=== PATIENT | female | born 1935 | race Caucasian/White ===

== ENCOUNTER 2016-11-30 15:10 | Emergency (ER) | payer OTHER, BC ==
[~2016-11-30] VITALS: Ht 157.5 cm; Wt 60.1 kg
[~2016-11-30 15:10] MED LIST: ALPRAZOLAM0.25 M2 PO; ALPRAZOLAM0.25 MG PO; CITRUCEL500 MG PO; COLACE50 MG PO; FLONASE16 G1 BOTH NARES; Flexeril PO; LEVOTHYROXINE75 MCG PO; LIDODERM 5% P1 PATCH TD; Levothroid,Synthroid PO; NEXIUM40 MG PO; Nucynta PO; OSCAL, OYSTER500 MG PO; PERCOCET 5/31 TABLET PO; PROTONIX40 MG PO; Pen-Vee K,Veetids PO; SYSTANE BALANCE10 ML BOTH EYES; SYSTANE ULTRA 015 ML BOTH EYES; TYLENOL EXTRA500 MG PO; VITAMIN B12-FO1 EACH PO; VITAMIN D32000 UNI1 PO; ZOFRAN ODT4 MG PO; ZOFRAN4 MG PO
[2016-11-30 16:46] LABS: HEMATOCRIT 37.7 % (36.0-46.0); MCH 30.8 PG (29.0-34.0); MCHC 32.9 G/DL (30.0-36.0); MCV 93.5 FL (83-99); MEAN PLAT.VOLUME 9.2 uM^3 (9.5-12.4); PLATELET COUNT 219 K/uL (156-360); RBC DIS.WIDTH-CV 13.1 % (11.8-14.6); RED BLOOD COUNT 4.03 M/uL (3.80-5.20); WHITE BLOOD COUNT 5.5 K/uL (4.1-10.2)
[2016-11-30 16:49] LABS: ADD MIUA? YES; BILIRUBIN NEGATIVE; BLOOD SMALL; COLOR STRAW ((YELLOW)); GLUCOSE (STRIP) NEGATIVE; KETONES 5; LEUKOCYTES NEGATIVE; NITRITE NEGATIVE; PROTEIN (STRIP) NEGATIVE; SPECIFIC GRAVITY 1.009 (1.000-1.030); UROBILINOGEN 0.2 MG/DL (0.2-1.0)
[2016-11-30 16:53] LABS: CHLORIDE 106 mEq/L (99-109); POTASSIUM 3.9 mEq/L (3.7-5.4); SODIUM 140 mEq/L (136-147)
[2016-11-30 16:55] LABS: GLUCOSE 116 mg/dL (70-99)
[2016-11-30 16:56] LABS: ANION GAP 10 MEQ/L (2-14)
[2016-11-30 16:57] LABS: BACTERIA NONE SEEN /HPF; EPITHELIAL CELLS RARE /HPF; MUCUS TRACE /LPF; RED BLOOD CELLS 0-5 /HPF (0-5); UCUL ADDED? NO; WHITE BLOOD CELLS 0-5 /HPF (0-5)
[2016-11-30 16:57] LABS: TOTAL BILIRUBIN 0.4 mg/dL (0.0-1.0)
[2016-11-30 16:59] LABS: ALKALINE PHOSPHATASE 63 IU/L (3-129); GFR ESTIMATE (CALCULATED) > 59 mL/min/
[2016-11-30 17:00] LABS: UREA NITROGEN (BUN) 8 mg/dL (9-23)
[2016-11-30 17:02] LABS: LIPASE 19 U/L (1.0-51.0)
[2016-11-30] MEDS ORDERED: PROMETHAZINE12.5 M1 PO (17:41)
[2016-11-30] MEDS ORDERED: HYDROCODON-ACE1 EAC7 PO (17:41)
[2016-11-30 20:17] VITALS: BP 159/69
== END 2016-11-30 20:18 | disposition home or self-care (01) ==
LOC: EME 15:10
PROVIDERS: Emergency Medicine
DX: M54.9 Dorsalgia, unspecified (principal); K21.9 Gastro-esophageal reflux disease without esophagitis
CPT/HCPCS: 71275; 74175; 80053; 81003; 83690; 85027; 99281; 99284; J2270; J2405

== ENCOUNTER 2017-11-25 07:42 | Emergency (ER) | payer OTHER, BC ==
[~2017-11-25] VITALS: Ht 154.9 cm; Wt 59.1 kg
[~2017-11-25 07:42] MED LIST changes: +HYDROCODON-ACE1 EAC7 PO; +PROMETHAZINE12.5 M1 PO
[2017-11-25 08:48] LABS: APPEARANCE CLEAR ((CLEAR)); BILIRUBIN NEGATIVE; BLOOD NEGATIVE; COLOR COLORLESS ((YELLOW)); GLUCOSE (STRIP) NEGATIVE; KETONES 5; LEUKOCYTES NEGATIVE; NITRITE NEGATIVE; PROTEIN (STRIP) NEGATIVE; SPECIFIC GRAVITY 1.005 (1.000-1.030); UCUL ADDED? NO; UROBILINOGEN 0.2 MG/DL (0.2-1.0)
[2017-11-25 09:56] VITALS: BP 166/72
== END 2017-11-25 10:12 | disposition home or self-care (01) ==
LOC: EME 07:42
PROVIDERS: Physician Assistant Medical
DX: S39.012A Strain of muscle, fascia and tendon of lower back, initial encounter (principal); G89.29 Other chronic pain; F41.9 Anxiety disorder, unspecified; K21.9 Gastro-esophageal reflux disease without esophagitis; Z88.8 Allergy status to other drugs, medicaments and biological substances; Z88.2 Allergy status to sulfonamides; Z88.6 Allergy status to analgesic agent
CPT/HCPCS: 72110; 81003; 99281; 99285

== ENCOUNTER 2017-12-01 09:52 | Emergency (ER) | payer OTHER, BC ==
[~2017-12-01] VITALS: Ht 154.9 cm; Wt 59.9 kg
[2017-12-01 10:46] LABS: HEMATOCRIT 37.7 % (36.0-46.0); HEMOGLOBIN 12.5 G/DL (11.9-15.5); MCH 31.3 PG (29.0-34.0); MCHC 33.2 G/DL (30.0-36.0); MCV 94.3 FL (83-99); PLATELET COUNT 241 K/uL (156-360); RBC DIS.WIDTH-CV 13.1 % (11.8-14.6); RBC DIS.WIDTH-SD 45.8 % (39-53); WHITE BLOOD COUNT 4.5 K/uL (4.1-10.2)
[2017-12-01 10:55] LABS: ALBUMIN 4.1 g/dL (3.2-4.8); CHLORIDE 101 mEq/L (99-109); POTASSIUM 4.5 mEq/L (3.7-5.4); SODIUM 140 mEq/L (136-147)
[2017-12-01 10:57] LABS: GLUCOSE 101 mg/dL (70-99); TOTAL PROTEIN 6.8 g/dL (6.4-8.3)
[2017-12-01 10:59] LABS: TOTAL BILIRUBIN 0.3 mg/dL (0.0-1.0)
[2017-12-01 11:01] LABS: ALKALINE PHOSPHATASE 70 IU/L (3-129); CREATININE 0.8 mg/dL (0.6-1.3); GFR ESTIMATE (CALCULATED) > 59 mL/min/
[2017-12-01 11:02] LABS: AST (GOT) 18 IU/L (2-34); UREA NITROGEN (BUN) 7 mg/dL (9-23)
[2017-12-01 11:03] LABS: DIRECT BILIRUBIN 0.1 mg/dL (0.0-0.3)
[2017-12-01 11:04] LABS: ALT (GPT) 8 IU/L (3-49)
[2017-12-01 11:29] VITALS: BP 182/87
== END 2017-12-01 11:30 | disposition home or self-care (01) ==
LOC: EME 09:52
PROVIDERS: Emergency Medicine
DX: R60.0 Localized edema (principal); R19.00 Intra-abdominal and pelvic swelling, mass and lump, unspecified site; Z79.891 Long term (current) use of opiate analgesic
CPT/HCPCS: 80048; 80076; 83880; 85027; 99281; 99284

== ENCOUNTER 2018-01-03 14:36 | Observation (INO) | payer OTHER, BC ==
[~2018-01-03] VITALS: Ht 154.9 cm; Wt 58.2 kg
[~2018-01-03 14:36] MED LIST changes: +COLACE100 MG PO; -COLACE50 MG PO
[2018-01-03 15:33] LABS: HEMATOCRIT 36.1 % (36.0-46.0); HEMOGLOBIN 12.2 G/DL (11.9-15.5); MCH 32.2 PG (29.0-34.0); MCHC 33.8 G/DL (30.0-36.0); MCV 95.3 FL (83-99); PLATELET COUNT 258 K/uL (156-360); RBC DIS.WIDTH-CV 14.4 % (11.8-14.6); RBC DIS.WIDTH-SD 50.1 % (39-53); RED BLOOD COUNT 3.79 M/uL (3.80-5.20); WHITE BLOOD COUNT 9.2 K/uL (4.1-10.2)
[2018-01-03 15:42] LABS: CHLORIDE 105 mEq/L (99-109); POTASSIUM 3.9 mEq/L (3.7-5.4); SODIUM 141 mEq/L (136-147)
[2018-01-03 15:43] LABS: GLUCOSE 104 mg/dL (70-99)
[2018-01-03 15:47] LABS: CREATININE 0.8 mg/dL (0.6-1.3); GFR ESTIMATE (CALCULATED) > 59 mL/min/
[2018-01-03 15:48] LABS: UREA NITROGEN (BUN) 15 mg/dL (9-23)
[2018-01-03] MEDS ORDERED: ZOFRAN4 MG PO (17:24)
[2018-01-03 20:02] LABS: HEMATOCRIT 37.5 % (36.0-46.0); HEMOGLOBIN 12.1 G/DL (11.9-15.5); MCV 95.2 FL (83-99)
[2018-01-03 20:42] VITALS: BP 167/73
[2018-01-04 00:09] VITALS: BP 140/65
[2018-01-04 02:28] LABS: HEMATOCRIT 33.6 % (36.0-46.0); HEMOGLOBIN 11.4 G/DL (11.9-15.5); MCV 94.1 FL (83-99)
[2018-01-04 03:30] VITALS: BP 169/77
[2018-01-04 07:12] LABS: HEMATOCRIT 33.5 % (36.0-46.0); MCV 94.1 FL (83-99)
[2018-01-04 08:43] VITALS: BP 167/74
[2018-01-04 11:43] VITALS: BP 167/73
[2018-01-04 14:39] LABS: HEMATOCRIT 34.6 % (36.0-46.0); MCV 94.8 FL (83-99)
[2018-01-04] MEDS ORDERED: DOCUSATE SODIU100 MG PO (15:32)
[2018-01-04] MEDS ORDERED: Milk Of Magnesia,MOM PO (15:33)
== END 2018-01-04 17:57 | disposition home or self-care (01) ==
LOC: EME 14:36 → EDOF 17:14 → ENRESERV 18:00 → 4SOUTH 19:39
PROVIDERS: Hospitalist
DX: K92.1 Melena (principal); R14.0 Abdominal distension (gaseous); R93.3 Abnormal findings on diagnostic imaging of other parts of digestive tract; E05.00 Thyrotoxicosis with diffuse goiter without thyrotoxic crisis or storm; R60.0 Localized edema; Z90.710 Acquired absence of both cervix and uterus; Z90.49 Acquired absence of other specified parts of digestive tract; Z88.2 Allergy status to sulfonamides; Z88.8 Allergy status to other drugs, medicaments and biological substances; Z88.5 Allergy status to narcotic agent; Z88.6 Allergy status to analgesic agent; Z82.49 Family history of ischemic heart disease and other diseases of the circulatory system
CPT/HCPCS: 80048; 85014; 85018; 85027; 86850; 86900; 86901; 99281; 99285; G0378

== ENCOUNTER → 2018-01-27 | Outpatient (CLI) | payer OTHER, BC ==
[~2018-01-27] VITALS: Ht 154.9 cm; Wt 56.7 kg
[~2018-01-27] MED LIST changes: +DOCUSATE SODIU100 MG PO; +MIRALAX17 GM PO; +Milk Of Magnesia,MOM PO
== END | disposition home or self-care (01) ==
LOC: AMB 08:47
PROC: 0DBK8ZX Excision of Ascending Colon, Via Natural or Artificial Opening Endoscopic, Diagnostic (ICD-10-PCS; principal; 2018-01-27)
PROC: 0DBL8ZX Excision of Transverse Colon, Via Natural or Artificial Opening Endoscopic, Diagnostic (ICD-10-PCS; principal; 2018-01-27)
PROC: 0DBP8ZX Excision of Rectum, Via Natural or Artificial Opening Endoscopic, Diagnostic (ICD-10-PCS; principal; 2018-01-27)
DX: D12.2 Benign neoplasm of ascending colon (principal); D12.3 Benign neoplasm of transverse colon; K62.1 Rectal polyp; K63.89 Other specified diseases of intestine; K64.8 Other hemorrhoids; Z98.0 Intestinal bypass and anastomosis status; Z87.19 Personal history of other diseases of the digestive system
CPT/HCPCS: 88305; 93005; J7643